=== PATIENT | male | born 1970 | race Caucasian/White ===

== ENCOUNTER 2018-05-27 15:00 | Emergency (ER) | payer OTHER ==
[~2018-05-27] VITALS: Ht 193 cm; Wt 123.0 kg
[~2018-05-27 15:00] MED LIST: FLEXERIL PO; HYDROCODONE-AP1 EAC6 PO; IBUPROFEN 200200 M1 PO; IBUPROFEN 800800 M1 PO; OMEPRAZOLE20 M2 PO
[2018-05-27] MEDS ORDERED: PRILOSEC 20 MG20 MG PO (15:11)
[2018-05-27] MEDS ORDERED: ALLOPURINOL 10100 M2 PO (15:12)
[2018-05-27 15:24] LABS: ABSOLUTE BASOPHILS 0.1 thou/uL (0.0-0.2); ABSOLUTE EOSINOPHILS 0.1 thou/uL (0.0-0.7); ABSOLUTE MONOCYTES 0.7 thou/uL (0.0-1.2); ABSOLUTE NEUTROPHILS 3.2 thou/uL (1.6-8.1); BASOPHILS 1.3 %; EOSINOPHILS 1.9 %; HEMATOCRIT 45.3 % (42.0-52.0); HEMOGLOBIN 15.4 gm/dL (14.0-18.0); LYMPHOCYTES 32.4 %; MCH 31.7 pg (26.0-34.0); MPV 7.1 fl. (7.2-11.1); NUCLEATED RBCS 0 /100WBC; PLATELET COUNT* 273 thou/uL (150-400); POLYS 52.4 %; RBC 4.87 mil/uL (4.50-6.00); WBC 6.1 thou/uL (4.0-11.0)
[2018-05-27 15:35] LABS: APTT 28.5 Seconds (25.0-31.3)
[2018-05-27 15:45] LABS: ANION GAP 7 mmol/L (7-16); BUN 15 mg/dL (7-18); CALCIUM 8.9 mg/dL (8.5-10.1); CHLORIDE 101 mmol/L (98-107); CO2 28 mmol/L (21-32); GLUCOSE 117 mg/dL (70-99); POTASSIUM 3.3 mmol/L (3.5-5.1); SODIUM 136 mmol/L (136-145)
[2018-05-27 16:07] LABS: ALBUMIN 4.1 g/dL (3.4-5.0); ALKALINE PHOSPHATASE 64 U/L (46-116); CK-MB MASS 1.8 ng/mL (<0.5-3.6); LIPASE 134 U/L (73-393); MAGNESIUM 1.9 mg/dL (1.8-2.4); NT-PRO BRAIN NAT PEPTIDE 7 pg/mL (<300); SGOT 21 U/L (15-37); SGPT 54 U/L (30-65); TOTAL BILIRUBIN 0.4 mg/dL (<0.1-1.0); TOTAL PROTEIN 7.4 g/dL (6.4-8.2); TROPONIN-I LEVEL <0.06 ng/mL (<0.06)
[2018-05-27] MEDS ORDERED: NORCO 5-325 TA1 EACH PO (16:22)
[2018-05-27] MEDS ORDERED: FLEXERIL PO (16:22)
[2018-05-27 16:38] VITALS: BP 138/96
--- NOTE | 2018-05-28 12:36 | EKG ---
[place] [address] ELECTROCARDIOGRAM REPORT Name: MAYKEL PACKER [id number] Admission: 05/27/18 Attend Phys: Discharge: 05/27/18 Date of : 74 Report #: [id number] THIS REPORT FOR: //name// [facility] ED Test Date: 2018-05-27 Test Time: 15:04:21 Pat Name: MAYKEL PACKER Department: Room: Gender: M [employer]: Carmelo OLIVA : 1970 Requested By: Alcides Post Order Number: [id number] MD: José Luis Wick Measurements Intervals Alex Rate: 90 P: 30 ND: 200 QRS: 56 QRSD: 83 T: -15 QT: 433 QTc: 530 Interpretive Statements Sinus rhythm Probable left atrial enlargement Anteroseptal infarct, old Borderline T abnormalities, inferior leads Prolonged QT interval Baseline wander in lead(s) I,III,aVL Compared to ECG 06/30/2016 08:40:41 Myocardial infarct finding now present T-wave abnormality now present Prolonged QT interval now present ST (T wave) deviation no longer present Electronically Signed On 05-28-2018 12:35:49 CDT by José Luis Wick [email or web address] <ELECTRONICALLY SIGNED> By: José Luis Wick MD, FACC 05/28/18 1235 [id number] [id number] José Luis Wick MD, FACC /EPI
== END 2018-05-27 16:39 | disposition home or self-care (01) ==
LOC: M.ERS 15:00
PROVIDERS: Family Medicine
DX: R07.9 Chest pain, unspecified (principal); M79.602 Pain in left arm; R06.02 Shortness of breath; I10 Essential (primary) hypertension